=== PATIENT | female | born 1990 | race American Indian/Alaskan Native ===

== ENCOUNTER 2022-01-06 05:05 | Emergency (ER) | payer OTHER ==
[2022-01-06] MEDS ORDERED: LIDOCAINE (1%) 10 MG/1 ML VIAL 20 ML MDV INFILTRATI ONE (08:14)
--- NOTE | 2022-01-06 08:15 | Emergency Department Report ---
Abscess Boil HPI - HPI Chief Complaint: Skin Rash Stated Complaint: BOIL ON INNER THIGH Time Seen by Provider: 01/06/22 08:02 Duration: 4 Days Location: Other Severity: Mild History: Yes Pain, Yes Purulent Drainage, Yes Previous History, No Fever, No Numbness, No Foreign Body, No Insect Bite HPI: Ms. Thao is a 31-year-old female that comes to the emergency room with an abscess of her left labia. This is after waxing. She has had this before. She is complaining of some drainage but a lot of pain. No fever or chills. No systemic symptoms. Home Medications: Previous Rx's Medication Instructions Recorded Last Taken Type cephALEXin [Keflex] 500 mg PO Q12HR #20 cap 01/06/22 Unknown Rx Allergies/Adverse Reactions: Allergies Allergy/AdvReac Type Severity Reaction Status Date / Time No Known Allergies Allergy Unverified 01/06/22 05:43 ED Review of Systems ROS: Stated complaint: BOIL ON INNER THIGH Other details as noted in HPI Comment: All other systems reviewed and negative ED Past Medical Hx - Past Medical History Previous Medical History?: No - Surgical History Past Surgical History?: No - Family History Family history: no significant - Social History Smoking Status: Never Smoker Substance Use Type: None - Medications Home Medications: Home Medications Medication Instructions Recorded Confirmed Last Taken Type cephALEXin [Keflex] 500 mg PO Q12HR #20 cap 01/06/22 Unknown Rx ED Abscess Boil Physical Exam - Exam General: Vital signs noted. No distress. Alert and acting appropriately. Size: 3 cm Exam: Yes Tenderness, Yes Fluctuance, Yes Normal Neurologic Exam, Yes Normal Circulation, No Surrounding Cellulites/Erythema, No Lymphangitis, No Crepitation, No Heart Murmur I & D Note - I & D Note I & D Note: Area prepped with Betadine. Using sterile technique I anesthetized the area with 1% lidocaine without epi. The abscess began to drain. A ldua was created with a #10 blade. A large amount of purulent discharge came from the wound. I have expressed the wound. Wound was cleaned and redressed. ED Course Vital Signs 01/06/22 05:43 Temperature 98 F Pulse Rate 73 Respiratory 18 Rate Blood Pressure 130/89 O2 Sat by Pulse 100 Oximetry Critical care attestation.: If time is entered above; I have spent that time in minutes in the direct care of this critically ill patient, excluding procedure time. ED Medical Decision Making - Medical Decision Making Vital Signs 01/06/22 01/06/22 01/06/22 05:43 09:12 09:14 Temperature 98 F 98.7 F Pulse Rate 73 70 Respiratory 18 14 14 Rate Blood Pressure 130/89 Blood Pressure 116/80 [Left] O2 Sat by Pulse 100 100 Oximetry I&D performed. Wound care provided. Patient educated on wound care. Patient discharged home with discharge plan of care including diet, activity, m edication and follow-up. She verbalizes understanding of plan of care. - Differential Diagnosis Simple abscess ED Disposition Clinical Impression: Abscess Disposition: 01 HOME / SELF CARE / HOMELESS Is pt being admited?: No Does the pt Need Aspirin: No Condition: Stable Instructions: Skin Abscess Additional Instructions: Medications as ordered today Motrin or Tylenol for pain Continue Epson salt soaks several times a day to provide for drainage Keep area covered because it will drain and we want it to drain Follow-up with OB and PCP as we discussed. Have given you referrals below Avoid waxing as we discussed Prescriptions: cephALEXin [Keflex] 500 mg PO Q12HR #20 cap Referrals: JAMAAL SILVA MD [Staff Physician] - 3-5 Days MEGAN SIDDIQUI MD [Staff Physician] - 3-5 Days Forms: Work/School Release Form(ED) Time of Disposition: 08:59
[2022-01-06] MEDS ORDERED: cephALEXin 500 MG CAP PO ONE (08:58)
[2022-01-06] MEDS ORDERED: IBUPROFEN 800 MG TAB PO ONE (08:58)
[2022-01-06 09:16] VITALS: BP 116/80
== END 2022-01-06 09:42 | disposition home or self-care (01) ==
LOC: ED 05:05
DX: N76.4 Abscess of vulva (principal)
CPT/HCPCS: 99282